=== PATIENT | female | born 1950 | race Caucasian/White ===

== ENCOUNTER 2016-06-30 14:14 | Outpatient (CLI) | payer MEDICARE, OTHER | END 2016-06-30 14:15 | LOC: LAB 14:14 | PROVIDERS: ATTEND Family Medicine | DX: E03.9 Hypothyroidism, unspecified (principal) | CPT/HCPCS: 36415; 84443 ==

== ENCOUNTER 2016-10-01 10:00 | Outpatient (CLI) | payer MEDICARE, OTHER ==
[2016-10-01 10:42] LABS: eGFR (African) > 60; eGFR (Non-African) > 60
== END 2016-10-01 10:02 ==
LOC: LAB 10:00
PROVIDERS: ATTEND Physician Assistant
DX: E78.5 Hyperlipidemia, unspecified (principal); M19.90 Unspecified osteoarthritis, unspecified site; Z79.899 Other long term (current) drug therapy; E03.9 Hypothyroidism, unspecified
CPT/HCPCS: 36415; 80053; 80061; 84443

== ENCOUNTER 2017-03-18 09:59 | Outpatient (CLI) | payer MEDICARE, OTHER | END 2017-03-18 10:00 | LOC: LAB 09:59 | PROVIDERS: ATTEND Physician Assistant | DX: E03.9 Hypothyroidism, unspecified (principal) | CPT/HCPCS: 36415; 84443 ==

== ENCOUNTER 2017-09-24 09:14 | Outpatient (CLI) | payer MEDICARE, OTHER ==
[2017-09-24 10:06] LABS: eGFR (African) > 60; eGFR (Non-African) > 60
== END 2017-09-24 09:15 ==
LOC: LAB 09:14
PROVIDERS: ATTEND Physician Assistant
DX: I10 Essential (primary) hypertension (principal); E78.5 Hyperlipidemia, unspecified; E03.9 Hypothyroidism, unspecified
CPT/HCPCS: 36415; 80053; 80061; 84439; 84443; 84481